=== PATIENT | female | born 1990 | race Caucasian/White ===

== ENCOUNTER 2020-11-26 21:19 | Emergency (ER) | payer MEDICAID, OTHER ==
--- NOTE | 2020-11-27 00:41 | ERPHSYRPT ---
- History of Present Illness Time Seen by Provider: 11/27/20 00:36 Source: patient Exam Limitations: no limitations Patient Subjective Stated Complaint: to er c/o "burning sensation under skin in left arm and left leg" pt states she also has been using an old needle and a "brianna cap" to inject meth over the last several weeks. pt has multiple deep abscesses noted to right hand, right wrist, and right inner thigh. pt aslo reports loss of taste and smell and a metalic taste in mouth. pt is tearful and states she does not want to live like this anymore Triage Nursing Assessment: pt arrrives p/w/d resp easy a@ox3 pt is anxious and has flight of ideas present. pt is tearful though denies suicidal ideation at this time. pt bbs cta and no fever present. scxattered purple bruises noted to karl leg with large deep abcess noted to mid upper right leg area is not red or hot to touch. Physician History: pt is sober at this time with normal mental status and declines workup to exclude serious complications and also declines I&D and understands the infections could progress with serious complications. she has the capacity to make this choice and will accept AB script and agrees to followup with her Dr. tender abscess SQ left wrist and left anterior thigh 1x 1,5 cm each without erythema. Timing/Duration: day(s) Quality: burning Severity: moderate Location: other Possible Causes: other (possible injection sittes) Associated Symptoms: denies symptoms Allergies/Adverse Reactions: No Known Drug Allergies Allergy (Unverified 11/26/20 22:29) Hx Tetanus, Diphtheria Vaccination/Date Given: No Travel Risk - International Travel Have you traveled outside of the country in past 3 weeks: No - Coronavirus Screening Are you exhibiting any of the following symptoms?: Yes Symptoms: Loss of Taste or Smell, Headaches/Body Aches/Fatigue Close contact with a COVID-19 positive Pt in past 14-21 Days: Yes - Vaccine Status Have you recieved a Covid-19 vaccination: No - Review of Systems Constitutional: No Fever, No Chills Eyes: No Symptoms Ears, Nose, & Throat: No Symptoms Respiratory: No Cough, No Dyspnea Cardiac: No Chest Pain, No Edema, No Syncope Abdominal/Gastrointestinal: No Abdominal Pain, No Nausea, No Vomiting, No Diarrhea Genitourinary Symptoms: No Dysuria Musculoskeletal: No Back Pain, No Neck Pain Skin: Other (skin SQ abscesses), No Rash Neurological: No Dizziness, No Focal Weakness, No Sensory Changes Psychological: No Symptoms Endocrine: No Symptoms Hematologic/Lymphatic: No Symptoms Immunological/Allergic: No Symptoms All Other Systems: Reviewed and Negative - Past Medical History Pertinent Past Medical History: No - Past Surgical History Past Surgical History: Yes Other Surgical History: ovarian cyst and left ankle needs leep procedure - Social History Smoking Status: Current every day smoker Drug Use: marijuana, methamphetamines - Female History Hx Last Menstrual Period: 11/10/20 Hx Now: No - Nursing Vital Signs Nursing Vital Signs: Initial Vital Signs Temperature 98.8 F 11/26/20 22:20 Pulse Rate 101 H 11/26/20 22:20 Respiratory Rate 18 11/26/20 22:20 Blood Pressure 122/89 11/26/20 22:20 O2 Sat by Pulse Oximetry 98 11/26/20 22:20 - Physical Exam General Appearance: no apparent distress, alert Eye Exam: PERRL/EOMI, eyes nml inspection Ears, Nose, Throat Exam: normal ENT inspection, pharynx normal, moist mucous membranes Neck Exam: normal inspection, non-tender, supple, full range of motion Respiratory Exam: normal breath sounds, lungs clear, No respiratory distress Cardiovascular Exam: regular rate/rhythm, normal heart sounds Gastrointestinal/Abdomen Exam: soft, mass, No tenderness Pelvic Exam: deferred Rectal Exam: deferred Back Exam: normal inspection, normal range of motion, No CVA tenderness, No vertebral tenderness Extremity Exam: normal inspection, normal range of motion Neurologic Exam: alert, oriented x 3, cooperative, normal mood/affect, sensation nml, No motor deficits Skin Exam: normal color, warm, dry, other (left wrist and left ant thigh SQ abcesses) SpO2 Interpretation: normal SpO2: 97 O2 Delivery: Room Air - Course Nursing assessment & vital signs reviewed: Yes Ordered Tests: Medication Summary Generic Name Dose Route Start Last Admin Trade Name Freq PRN Reason Stop Dose Admin Cephalexin HCl 500 mg 11/27/20 00:48 Keflex 500 Mg PO 11/27/20 00:49 STAT ONE Trimethoprim/Sulfamethoxazole 1 tab 11/27/20 00:47 Bactrim Ds Tablet PO 11/27/20 00:48 STAT STA - Progress Counseled pt/family regarding: drug and/or alcohol abuse, diagnosis, need for follow-up - Departure Departure Disposition: Home Clinical Impression: SQ abcesses Left thigh and wrist, Person under investigation for COVID-19 Condition: Good Critical Care Time: No Referrals: DOCTOR,NO FAMILY [Primary Care Provider] - Instructions: MRSA (DC), Drug Abuse and Drug Addiction (DC), Wound Infection, Coronavirus Disease 2019 (COVID-19) (DC) Additional Instructions: followup with your Dr. as these may need drainage or return meantime if not improving as serious complications can happen. see counselling for your drug use. Self Quarantine until COvid results return and then if appropriate. return if any shortness of breath as there can be complications. Prescriptions: Smz/Tmp Ds Tablet [Bactrim Ds Tablet] 1 tab PO Q12H 10 Days #20 tablet Cephalexin Mh 500 mg [Keflex 500 mg] 500 mg PO TID #30 cap
[2020-11-27] MEDS ORDERED: BACTRIM DS TABLET PO STA (00:47)
[2020-11-27] MEDS ORDERED: KEFLEX 500 MG PO ONE (00:48)
[2020-11-27] MEDS ORDERED: KEFLEX 500 MG ONE (01:00)
[2020-11-27] MEDS ORDERED: BACTRIM DS TABLET PO ONE (01:00)
[2020-11-27 01:09] VITALS: BP 115/64; PULSE 62; O2SAT 99
== END 2020-11-27 01:14 | disposition home or self-care (01) ==
LOC: ED 21:19
DX: L02.416 Cutaneous abscess of left lower limb (principal); L02.414 Cutaneous abscess of left upper limb; R43.9 Unspecified disturbances of smell and taste; Z20.822 Contact with and (suspected) exposure to COVID-19
CPT/HCPCS: 99284; U0003; A9270-GY